=== PATIENT | female | born 1945 | race Caucasian/White ===

== ENCOUNTER 2023-11-03 16:09 | Emergency (ER) | payer MEDICARE ==
[~2023-11-03] VITALS: Ht 160 cm; Wt 66.7 kg
[2023-11-03] MEDS ORDERED: VENLAFAXINE HY150 M2 PO (16:35)
[2023-11-03] MEDS ORDERED: PRAVASTATIN SOD20 MG PO (16:35)
[2023-11-03] MEDS ORDERED: LISINOPRIL40 MG PO (16:35)
[2023-11-03] MEDS ORDERED: VENT7GM INH (16:35)
[2023-11-03] MEDS ORDERED: PREDNISONE20 M1 PO (16:36)
[2023-11-03] MEDS ORDERED: cloNIDine Hydrochloride 0.1 MG TAB PO ONE ×3 (16:45→17:05)
== END 2023-11-03 18:12 | disposition home or self-care (01) ==
LOC: ED 16:09
DX: I15.8 Other secondary hypertension (principal); T38.0X5A Adverse effect of glucocorticoids and synthetic analogues, initial encounter; J45.909 Unspecified asthma, uncomplicated; Z79.899 Other long term (current) drug therapy; Y92.89 Other specified places as the place of occurrence of the external cause

== ENCOUNTER 2023-11-11 10:27 | Emergency (ER) | payer MEDICARE ==
[~2023-11-11] VITALS: Ht 157.4 cm; Wt 66.7 kg
[~2023-11-11 10:27] MED LIST: LISINOPRIL40 MG PO; PRAVASTATIN SOD20 MG PO; PREDNISONE20 M1 PO; VENLAFAXINE HY150 M2 PO; VENT7GM INH
[2023-11-11] MEDS ORDERED: HYDR25T PO (11:07)
== END 2023-11-11 11:17 | disposition home or self-care (01) ==
LOC: ED 10:27
DX: I10 Essential (primary) hypertension (principal); J45.909 Unspecified asthma, uncomplicated